=== PATIENT | male | born 1995 | race Asian ===

== ENCOUNTER 2018-10-09 11:35 | Emergency (ER) | payer OTHER ==
[~2018-10-09] VITALS: Ht 172.7 cm; Wt 81.6 kg
[2018-10-09 13:10] VITALS: BP 128/88; TEMP 98
== END 2018-10-09 13:10 | disposition home or self-care (01) ==
LOC: ED 11:35
DX: K12.2 Cellulitis and abscess of mouth (principal)
CPT/HCPCS: 87502; 87651; 99283

== ENCOUNTER 2018-11-29 08:21 | Emergency (ER) | payer OTHER ==
[~2018-11-29] VITALS: Ht 172.7 cm; Wt 77.1 kg
[2018-11-29 09:35] LABS: PLATELET COUNT 280 K/uL (142-355)
[2018-11-29 13:25] VITALS: BP 122/84; TEMP 97.7
== END 2018-11-29 13:25 | disposition home or self-care (01) ==
LOC: ED 08:21
PROVIDERS: Emergency Medicine
DX: K52.9 Noninfective gastroenteritis and colitis, unspecified (principal); J06.9 Acute upper respiratory infection, unspecified
CPT/HCPCS: 36415; 80053; 85027; 87502; 87651; 99283; Q9963

== ENCOUNTER 2018-12-01 16:01 | Emergency (ER) | payer OTHER ==
[~2018-12-01] VITALS: Ht 172.7 cm; Wt 77.1 kg
[2018-12-01 17:33] LABS: PLATELET COUNT 262 K/uL (142-355)
[2018-12-01 17:39] LABS: POTASSIUM 4.1 mmol/L (3.6-5.2)
[2018-12-01 18:15] VITALS: BP 128/78; TEMP 99.1
== END 2018-12-01 18:15 | disposition home or self-care (01) ==
LOC: ED 16:01
PROVIDERS: Emergency Medicine
DX: R21 Rash and other nonspecific skin eruption (principal); K52.9 Noninfective gastroenteritis and colitis, unspecified
CPT/HCPCS: 80053; 85027; 99283; J1100

== ENCOUNTER 2019-01-09 17:33 | Emergency (ER) | payer OTHER ==
[~2019-01-09] VITALS: Ht 172.7 cm; Wt 77.1 kg
[2019-01-09 19:33] VITALS: BP 153/107; TEMP 99.7
== END 2019-01-09 19:35 | disposition home or self-care (01) ==
LOC: ED 17:33
PROC: 2W3CX1Z Immobilization of Right Lower Arm using Splint (ICD-10-PCS; principal; 2019-01-09)
DX: S62.306A Unspecified fracture of fifth metacarpal bone, right hand, initial encounter for closed fracture (principal); W19.XXXA Unspecified fall, initial encounter
CPT/HCPCS: 99283; J1885

== ENCOUNTER 2019-12-28 10:28 | Emergency (ER) | payer OTHER ==
[~2019-12-28] VITALS: Ht 172.7 cm; Wt 78.9 kg
[2019-12-28 11:08] LABS: PLATELET COUNT 324 K/uL (142-355)
[2019-12-28 11:13] LABS: POTASSIUM 4.2 mmol/L (3.6-5.2)
[2019-12-28 14:18] VITALS: BP 122/80; TEMP 97.8
== END 2019-12-28 14:18 | disposition home or self-care (01) ==
LOC: ED 10:28
PROVIDERS: Emergency Medicine
DX: R10.30 Lower abdominal pain, unspecified (principal); K52.9 Noninfective gastroenteritis and colitis, unspecified
CPT/HCPCS: 80053; 81000; 82150; 83690; 85027; 96374; 99284; J1885; Q9963